=== PATIENT | female | born 1990 | race Caucasian/White ===

== ENCOUNTER 2019-09-28 17:49 | Emergency (ER) | payer MEDICAID ==
[~2019-09-28] VITALS: Ht 165.1 cm; Wt 52.8 kg
[~2019-09-28 17:49] MED LIST: ESCI10TA10 PO
[2019-09-28 17:50] VITALS: BP 154/99
--- NOTE | 2019-09-28 18:38 | NUR ---
[employer]: NA X 3 [phone] [phone], [phone]
== END 2019-09-28 18:40 | disposition left against medical advice (07) ==
LOC: ED 18:34
DX: L02.413 Cutaneous abscess of right upper limb (principal); Z53.21 Procedure and treatment not carried out due to patient leaving prior to being seen by health care provider

== ENCOUNTER 2019-11-30 07:13 | Emergency (ER) | payer MEDICAID ==
[~2019-11-30] VITALS: Ht 165.1 cm; Wt 56.2 kg
[2019-11-30 07:22] VITALS: BP 138/102
[2019-11-30] MEDS ORDERED: DIPH,PERTUSS(ACELL),TET VAC/PF 0.5 ML IM-VACC ONE ×2 (09:15→09:30)
[2019-11-30] MEDS ORDERED: LIDOCAINE-MPF 1%, 5ML ONE ×2 (09:15→09:17)
--- NOTE | 2019-11-30 09:22 | NUR ---
multiple abcesses bilateral arms
[2019-11-30] MEDS ORDERED: LIDOCAINE-MPF 1%, 5ML INFIL ONE (09:30)
== END 2019-11-30 10:35 | disposition home or self-care (01) ==
LOC: ED 10:33
DX: L02.414 Cutaneous abscess of left upper limb (principal)
CPT/HCPCS: 10061; 90471; 90715; 99284